=== PATIENT | female | born 1940 | race Caucasian/White ===

== ENCOUNTER 2021-12-10 20:10 | Emergency (ER) | payer MEDICARE ==
[~2021-12-10] VITALS: Ht 165.1 cm; Wt 77.1 kg
[2021-12-10] MEDS ORDERED: ELIQUIS5 M2 PO (20:24)
[2021-12-10] MEDS ORDERED: ZOCOR10 MG PO (20:24)
[2021-12-10] MEDS ORDERED: LEVOTHYROXINE75 MC1 PO (20:25)
== END 2021-12-10 22:32 | disposition home or self-care (01) ==
LOC: ED 20:10
DX: S00.531A Contusion of lip, initial encounter (principal); R68.84 Jaw pain; Z88.8 Allergy status to other drugs, medicaments and biological substances; Z88.2 Allergy status to sulfonamides; Z79.899 Other long term (current) drug therapy; W18.09XA Striking against other object with subsequent fall, initial encounter; Y93.89 Activity, other specified; Y92.89 Other specified places as the place of occurrence of the external cause; Y99.8 Other external cause status